=== PATIENT | male | born 1980 | race Caucasian/White ===

== ENCOUNTER 2024-01-23 22:20 | Emergency (ER) | payer BC ==
[~2024-01-23] VITALS: Ht 182.9 cm; Wt 105.0 kg
[2024-01-23 22:33] VITALS: BP 165/84; PULSE 93; RESP 16; TEMP 98.2; O2SAT 94
== END 2024-01-24 03:48 | disposition left against medical advice (07) ==
LOC: ER 22:20
DX: J45.909 Unspecified asthma, uncomplicated (principal); Z53.21 Procedure and treatment not carried out due to patient leaving prior to being seen by health care provider